=== PATIENT | male | born 1970 | race Caucasian/White ===

== ENCOUNTER 2019-06-23 17:31 | Emergency (ER) | payer MEDICAID ==
[~2019-06-23] VITALS: Ht 170.2 cm; Wt 88.0 kg
[~2019-06-23 17:31] MED LIST: celexa
[2019-06-23] MEDS ORDERED: BACITRACIN 15GM TUBE TOP ONE (19:15)
[2019-06-23 20:49] VITALS: BP 109/70
== END 2019-06-23 20:58 | disposition home or self-care (01) ==
LOC: ER 17:31
DX: S90.411A Abrasion, right great toe, initial encounter (principal); L03.031 Cellulitis of right toe; F14.10 Cocaine abuse, uncomplicated; F17.200 Nicotine dependence, unspecified, uncomplicated; Z88.8 Allergy status to other drugs, medicaments and biological substances; Z98.890 Other specified postprocedural states; X58.XXXA Exposure to other specified factors, initial encounter; Y93.89 Activity, other specified; Y92.89 Other specified places as the place of occurrence of the external cause; Y99.8 Other external cause status
CPT/HCPCS: 99282; 99283

== ENCOUNTER 2024-02-09 08:43 | Emergency (ER) | payer MEDICAID ==
[~2024-02-09] VITALS: Ht 180.3 cm; Wt 78.0 kg
[2024-02-09 08:51] VITALS: O2SAT 100
[2024-02-09] MEDS ORDERED: CEPH500T MT (09:38)
[2024-02-09 09:59] VITALS: BP 138/89; PULSE 85; RESP 16; TEMP 98.3
== END 2024-02-09 10:00 | disposition home or self-care (01) ==
LOC: ER 09:02
DX: L97.518 Non-pressure chronic ulcer of other part of right foot with other specified severity (principal); F15.90 Other stimulant use, unspecified, uncomplicated; M10.9 Gout, unspecified; E11.9 Type 2 diabetes mellitus without complications; I10 Essential (primary) hypertension; Z98.890 Other specified postprocedural states; Z88.8 Allergy status to other drugs, medicaments and biological substances
CPT/HCPCS: 99283

== ENCOUNTER 2024-02-10 07:23 | Emergency (ER) | payer MEDICAID ==
[~2024-02-10] VITALS: Ht 175.3 cm; Wt 86.2 kg
[~2024-02-10 07:23] MED LIST changes: +CEPH500T MT
[2024-02-10 07:30] VITALS: BP 133/82; TEMP 98.6; O2SAT 98
[2024-02-10 07:31] VITALS: PULSE 103
[2024-02-10 07:54] LABS: BASOPHILS % 0.8 % (0.0-2.0); EOSINOPHILS % 2.3 % (0.0-5.0); HEMATOCRIT. 36.2 % (42.0-52.0); LYMPHOCYTES % 26.4 % (20.0-50.0); MEAN CORPUSCULAR HEMOGLOBIN 28.5 pg (28.0-32.0); MEAN CORPUSCULAR HGB CONC 33.1 g/dL (31.0-37.0); MEAN CORPUSCULAR VOLUME 86.2 fL (80.0-94.0); MEAN PLATELET VOLUME 7.9 fl (7.4-10.4); MONOCYTES % 9.9 % (2.0-8.0); NEUTROPHILS % 60.6 % (40.0-76.0); PLATELET 285 x1000/uL (130-400); RED CELL DISTRIBUTION WIDTH 14.3 % (11.6-14.6); WHITE BLOOD COUNT 5.3 x1000/uL (4.5-11.0)
[2024-02-10 08:03] LABS: CHLORIDE 107 mEq/L (98-107); SODIUM 137 mEq/L (136-145)
[2024-02-10 08:04] LABS: CALCIUM 8.8 mg/dL (8.7-10.4); CARBON DIOXIDE 26 mEq/L (21-32)
[2024-02-10 08:09] LABS: CREATININE 0.7 mg/dL (0.6-1.3); GLUCOSE 109 mg/dL (70-105); UREA NITROGEN BLOOD 8 mg/dL (9-23)
== END 2024-02-10 08:24 | disposition left against medical advice (07) ==
LOC: ER 07:23
DX: M10.062 Idiopathic gout, left knee (principal); M10.061 Idiopathic gout, right knee; G89.29 Other chronic pain; F31.9 Bipolar disorder, unspecified; E11.9 Type 2 diabetes mellitus without complications; I10 Essential (primary) hypertension; F15.10 Other stimulant abuse, uncomplicated
CPT/HCPCS: 36415; 73630; 80048; 82962; 85025; 99284